=== PATIENT | female | born 2000 | race Two or more races ===

== ENCOUNTER 2022-09-17 21:48 | Emergency (ER) | payer OTHER ==
[~2022-09-17] VITALS: Ht 162.6 cm; Wt 59.0 kg
[2022-09-18 00:07] VITALS: BP 109/72
[2022-09-18] MEDS ORDERED: ACETAMINOPHEN 500 MG TAB PO ONE (00:30)
[2022-09-18] MEDS ORDERED: ACET-6 PO (01:25)
== END 2022-09-18 01:34 | disposition home or self-care (01) ==
LOC: ER 21:48
DX: S39.012A Strain of muscle, fascia and tendon of lower back, initial encounter (principal); R51.9 Headache, unspecified; V43.52XA Car driver injured in collision with other type car in traffic accident, initial encounter; Y93.89 Activity, other specified; Y92.488 Other paved roadways as the place of occurrence of the external cause; Y99.8 Other external cause status
CPT/HCPCS: 71046; 72040; 72100